=== PATIENT | male | born 1960 | race Asian ===

== ENCOUNTER 2023-11-21 07:02 | Day surgery (SDC) | payer OTHER ==
[~2023-11-21] VITALS: Ht 165.1 cm; Wt 82.6 kg
[2023-11-21] MEDS ORDERED: MEPERIDINE 100 MG INJ. 100 MG/ML VIAL ONE (07:45)
[2023-11-21] MEDS ORDERED: MIDAZOLAM HCL 5 MG/5 ML VIAL ONE (07:46)
[2023-11-21 08:08] VITALS: O2SAT 100
[2023-11-21 13:35] VITALS: BP_SYST 130; PULSE 70; RESP 18
== END 2023-11-21 10:28 | disposition home or self-care (01) ==
LOC: SDS 07:02 → SMU 07:03 → SDS 10:28
PROVIDERS: ATTEND Internal Medicine
DX: K62.5 Hemorrhage of anus and rectum (principal); K63.5 Polyp of colon; K57.30 Diverticulosis of large intestine without perforation or abscess without bleeding; K64.8 Other hemorrhoids; K62.89 Other specified diseases of anus and rectum; I10 Essential (primary) hypertension; E11.9 Type 2 diabetes mellitus without complications; E78.5 Hyperlipidemia, unspecified; K21.9 Gastro-esophageal reflux disease without esophagitis; G47.30 Sleep apnea, unspecified; M19.90 Unspecified osteoarthritis, unspecified site; Z79.84 Long term (current) use of oral hypoglycemic drugs; Z79.899 Other long term (current) drug therapy
CPT/HCPCS: 45380; 45385; 99152; 82948; 88305; G0378; J2250; J2175